=== PATIENT | female | born 1975 | race Caucasian/White ===

== ENCOUNTER 2022-10-24 03:55 | Emergency (ER) | payer OTHER ==
[2022-10-24] MEDS ORDERED: NA CHLORIDE 0.9% 1,000 ML ONE (04:27)
[2022-10-24 04:43] LABS: Absolute Lymphocytes (CBC) 2.6 K/uL (0.7-4.9); Hematocrit 31.9 % (36.0-45.0); Lymphocytes % 21.7 % (15.3-44.8); MCV 88.3 fL (80-100); MPV 7.2 fL (7.6-11.3); RBC Red Blood Cell Count 3.62 M/uL (3.86-4.86)
[2022-10-24 04:58] LABS: Albumin 2.8 g/dL (3.4-5.0); Bilirubin Total 0.4 mg/dL (0.2-1.0); Potassium 3.8 mmol/L (3.5-5.1); Protein, Total 6.7 g/dL (6.4-8.2)
[2022-10-24] MEDS ORDERED: BISACODYL E.C. 5 MG TAB PO ONE (06:00)
[2022-10-24] MEDS ORDERED: FLEET ENEMA ADULT PR ONE ×2 (06:00→07:00)
--- NOTE | 2022-10-24 06:47 | EDPHYS ---
Physician Documentation [facility] Name: Adela Hector Age: 46 yrs Sex: Female : 1975 Arrival Date: 10/24/2022 Time: 03:56 Bed 6 Private MD: ED Physician Wyatt Cárdenas HPI: 10/24 04:17 This 46 yrs old Female presents to ER via EMS with complaints of Right lower quadrant kdr pain, constipation. 04:17 Patient is status post right hip replacement several days ago. She states that prior to kdr the surgery she had been constipated and had been unable to empty her bowels thoroughly. Since the surgery several days ago she has not subsequently had a bowel movement is now feels very full. She also complains of right lower quadrant pain. She is nontoxic-appearing but does appear mild uncomfortable. She denies nausea or vomiting, fever or chills. She is otherwise in her usual state of health. Surgery was done at [facility]. Historical: - Allergies: 04:00 No Known Allergies; kl - Home Meds: 04:00 aspirin 81 mg Oral cap 2 caps once daily [Active]; rosuvastatin 20 mg oral cpSP 1 cap kl once daily [Active]; gabapentin 100 mg oral cap 2 caps 3 times per day [Active]; Tylenol-Codeine #4 300-60 mg Oral tab 1 tab every 6 hours [Active]; - PSHx: 04:00 hip replacement; kl - Immunization history:: Adult Immunizations not up to date. - Social history:: Smoking status: Patient denies any tobacco usage or history of. ROS: 04:39 Constitutional: Negative for fever, chills, and weight loss, Eyes: Negative for injury, kdr pain, redness, and discharge, ENT: Negative for injury, pain, and discharge, Neck: Negative for injury, pain, and swelling, Cardiovascular: Negative for chest pain, palpitations, and edema, Respiratory: Negative for shortness of breath, cough, wheezing, and pleuritic chest pain, Back: Negative for injury and pain, : Negative for injury, bleeding, discharge, and swelling, MS/Extremity: Negative for injury and deformity, Skin: Negative for injury, rash, and discoloration, Neuro: Negative for headache, weakness, numbness, tingling, and seizure activity. Psych: Negative for depression, anxiety, suicide ideation, homicidal ideation, and hallucinations, Allergy/Immunology: Negative for hives, rash, and allergies, Endocrine: Negative for neck swelling, polydipsia, polyuria, polyphagia, and marked weight changes, Hematologic/Lymphatic: Negative for swollen nodes, abnormal bleeding, and unusual bruising. 04:39 Abdomen/GI: Positive for abdominal pain, nausea, constipation, Negative for black/tarry stool, rectal pain, rectal bleeding, bowel incontinence. Exam: 04:39 Constitutional: This is a well developed, well nourished patient who is awake, alert, kdr and in no acute distress. Head/Face: Normocephalic, atraumatic. Eyes: Pupils equal round and reactive to light, extra-ocular motions intact. Lids and lashes normal. Conjunctiva and sclera are non-icteric and not injected. Cornea within normal limits. Periorbital areas with no swelling, redness, or edema. Neck: Trachea midline, no thyromegaly or masses palpated, and no cervical lymphadenopathy. Supple, full range of motion without nuchal rigidity, or vertebral point tenderness. No Meningismus. Chest/axilla: Normal chest wall appearance and motion. Nontender with no deformity. No lesions are appreciated. Cardiovascular: Regular rate and rhythm with a normal S1 and S2. No gallops, murmurs, or rubs. Normal PMI, no JVD. No pulse deficits. Respiratory: Lungs have equal breath sounds bilaterally, clear to auscultation and percussion. No rales, rhonchi or wheezes noted. No increased work of breathing, no retractions or nasal flaring. Back: No spinal tenderness. No costovertebral tenderness. Full range of motion. Skin: Warm, dry with normal turgor. Normal color with no rashes, no lesions, and no evidence of cellulitis. MS/ Extremity: Pulses equal, no cyanosis. Neurovascular intact. Full, normal range of motion. Neuro: Awake and alert, GCS 15, oriented to person, place, time, and situation. Cranial nerves II-XII grossly intact. Motor strength 5/5 in all extremities. Sensory grossly intact. Cerebellar exam normal. Normal gait. Psych: Awake, alert, with orientation to person, place and time. Behavior, mood, and affect are within normal limits. 04:39 Abdomen/GI: Inspection: obese Bowel sounds: active, Palpation: soft, mild abdominal tenderness, in the anterior aspect of right lateral abdomen and right lower quadrant. Vital Signs: 03:57 BP 92 / 64; Pulse 81; Resp 16; Pulse Ox 95% ; kl 04:03 Weight 98.88 kg; Height 5 ft. 6 in. (167.64 cm); Pain 10/10; kl 05:46 BP 113 / 67; Pulse 83; Resp 16; Pulse Ox 99% on R/A; jb4 04:03 Body Mass Index 35.19 (98.88 kg, 167.64 cm) kl MDM: 04:39 Data reviewed: vital signs, nurses notes, lab test result(s), radiologic studies. kdr Consideration of Admission/Observation Patient was admitted/placed on observation. I considered the following discharge prescriptions or medication management in the emergency department Medications were administered in the Emergency Department. See NOV. 06:46 Patient medically screened. kdr 10/24 04:15 Order name: CBC with Diff; Complete Time: 05:46 kdr 10/24 04:15 Order name: CMP; Complete Time: 05:46 kdr 10/24 04:15 Order name: Lipase; Complete Time: 05:46 kdr 10/24 04:15 Order name: CT Abd/Pelvis - IV Contrast Only kdr 10/24 04:15 Order name: IV Saline Lock; Complete Time: 05:07 kdr 10/24 04:15 Order name: Labs collected and sent; Complete Time: 05:07 kdr Administered Medications: 04:30 Drug: NS 0.9% 1000 ml Route: IV; Rate: 1 bolus; Site: left antecubital; jb4 06:12 Drug: Fleet Enema (sodium phosphate) 133 ml Route: SD; kl 06:40 Follow up: Response: No adverse reaction; Pain is decreased; Other kl 06:12 Drug: Dulcolax Delayed Release Tablet 15 mg Route: PO; kl Disposition Summary: 10/24/22 06:46 Discharge Ordered Location: Home kdr Problem: an ongoing problem kdr Symptoms: have improved kdr Condition: Stable kdr Diagnosis - Constipation kdr Followup: kdr - With: Private Physician - When: 2 - 3 days - Reason: If symptoms return, Further diagnostic work-up, Recheck today's complaints, Continuance of care, Re-evaluation by your physician Discharge Instructions: - Discharge Summary Sheet kdr - Constipation, Adult, [id number] kdr Forms: - Medication Reconciliation Form kdr - Thank You Letter kdr - Antibiotic Education kdr Prescriptions: - Dulcolax (bisacodyl) 5 mg Oral tablet,delayed release (DR/EC) - take 2 tablet by ORAL route once daily As needed; 10 tablet; Refills: 0, kdr Product Selection Permitted - Lactulose 10 gram/15 mL Oral Solution - take 30 milliliters by ORAL route once daily; 300 milliliter; Refills: 0, kdr Product Selection Permitted Signatures: Dispatcher [employer] Shanique Garner RN RN kl Rittger, Kevin, MD MD kdr Bryson, James, RN RN jb4 Corrections: (The following items were deleted from the chart) 04:03 04:00 Allergies: Aspirin; shyam howe
--- NOTE | 2022-10-24 06:47 | ER ---
Nurse's Notes [facility] Name: Adela Hector Age: 46 yrs Sex: Female : 1975 Arrival Date: 10/24/2022 Time: 03:56 Bed 6 Private MD: Diagnosis: Constipation Presentation: 10/24 03:57 Chief complaint: Patient states: right lower quadrant pain and constipation discharged kl yesterday from [facility] s/p hip replacement. Coronavirus screen: Vaccine status: Patient reports receiving the 2nd dose of the covid vaccine. Ebola Screen: Patient negative for fever greater than or equal to 101.5 degrees Fahrenheit, and additional compatible Ebola Virus Disease symptoms. Initial Sepsis Screen: Does the patient meet any 2 criteria? No. Patient's initial sepsis screen is negative. Does the patient have a suspected source of infection? No. Patient's initial sepsis screen is negative. 03:57 Method Of Arrival: EMS: [facility] 03:57 Acuity: LO 3 kl 07:10 Risk Assessment: Do you want to hurt yourself or someone else? Patient reports no kl desire to harm self or others. Triage Assessment: 03:59 General: Appears distressed, uncomfortable, Behavior is anxious. Pain: Complains of kl pain in right lower quadrant. Historical: - Allergies: 04:00 No Known Allergies; kl - Home Meds: 04:00 aspirin 81 mg Oral cap 2 caps once daily [Active]; rosuvastatin 20 mg oral cpSP 1 cap kl once daily [Active]; gabapentin 100 mg oral cap 2 caps 3 times per day [Active]; Tylenol-Codeine #4 300-60 mg Oral tab 1 tab every 6 hours [Active]; - PSHx: 04:00 hip replacement; kl - Immunization history:: Adult Immunizations not up to date. - Social history:: Smoking status: Patient denies any tobacco usage or history of. Screenin:39 [facility] ED Fall Risk Assessment (Adult) History of falling in the last 3 months, jb4 including since admission No falls in past 3 months (0 pts) Confusion or Disorientation No (0 pts) Mobility Assist Device Used Yes (1 pt) Score/Fall Risk Level 0 - 2 = Low Risk Oriented to surroundings, Maintained a safe environment. Abuse screen: Denies threats or abuse. Nutritional screening: No deficits noted. Tuberculosis screening: No symptoms or risk factors identified. Assessment: 04:29 General: Appears in no apparent distress. uncomfortable, Behavior is calm, cooperative, jb4 appropriate for age. Pain: Complains of pain in right lower quadrant Pain does not radiate. Pain currently is 8 out of 10 on a pain scale. Neuro: Level of Consciousness is awake, alert, obeys commands, Oriented to person, place, time, situation. Cardiovascular: Patient's skin is warm and dry. Respiratory: Airway is patent Respiratory effort is even, unlabored, Respiratory pattern is regular, symmetrical. GI: No signs and/or symptoms were reported involving the gastrointestinal system. : No signs and/or symptoms were reported regarding the genitourinary system. EENT: No signs and/or symptoms were reported regarding the EENT system. Derm: Skin is intact, Skin is pink, warm \T\ dry. Musculoskeletal: Circulation, motion, and sensation intact. Range of motion: intact in all extremities. 04:56 Reassessment: Patient appears in no apparent distress at this time. Patient and/or jb4 family updated on plan of care and expected duration. Pain level reassessed. Patient is alert, oriented x 3, equal unlabored respirations, skin warm/dry/pink. 05:46 Reassessment: Patient appears in no apparent distress at this time. Patient and/or jb4 family updated on plan of care and expected duration. Pain level reassessed. Patient is alert, oriented x 3, equal unlabored respirations, skin warm/dry/pink. 07:10 Reassessment: Patient appears in no apparent distress at this time. Patient and/or jb4 family updated on plan of care and expected duration. Pain level reassessed. Patient is alert, oriented x 3, equal unlabored respirations, skin warm/dry/pink. Vital Signs: 03:57 BP 92 / 64; Pulse 81; Resp 16; Pulse Ox 95% ; kl 04:03 Weight 98.88 kg; Height 5 ft. 6 in. (167.64 cm); Pain 10/10; kl 05:46 BP 113 / 67; Pulse 83; Resp 16; Pulse Ox 99% on R/A; jb4 04:03 Body Mass Index 35.19 (98.88 kg, 167.64 cm) ED Course: 03:56 Patient arrived in ED. kl 03:59 Triage completed. kl 04:05 Wyatt Cárdenas MD is Attending Physician. kdr 04:15 Osmani Dobson, RN is Primary Nurse. jb4 04:39 Patient has correct armband on for positive identification. Bed in low position. Call jb4 light in reach. Side rails up X 1. Client placed on continuous cardiac and pulse oximetry monitoring. NIBP monitoring applied. 04:39 No provider procedures requiring assistance completed. Initial lab(s) drawn, by ED jb4 staff, sent to lab. Inserted saline lock: 20 gauge in left antecubital area, using aseptic technique. Blood collected. 05:24 CT Abd/Pelvis - IV Contrast Only In Process Unspecified. EDTX 07:09 Patient transferred, IV remains in place. intact, bleeding controlled, No kl redness/swelling at site. Pressure dressing applied. Administered Medications: 04:30 Drug: NS 0.9% 1000 ml Route: IV; Rate: 1 bolus; Site: left antecubital; jb4 06:12 Drug: Fleet Enema (sodium phosphate) 133 ml Route: AL; kl 06:40 Follow up: Response: No adverse reaction; Pain is decreased; Other kl 06:12 Drug: Dulcolax Delayed Release Tablet 15 mg Route: PO; Medication: 07:10 VIS not applicable for this client. Outcome: 06:46 Discharge ordered by . kdr 07:10 Discharged to home ambulatory. kl 07:10 Condition: improved 07:10 Discharge instructions given to patient, Instructed on discharge instructions, follow up and referral plans. medication usage, Demonstrated understanding of instructions, follow-up care, medications, Prescriptions given X 1. 07:10 Patient left the ED. jb4 Signatures: Dispatcher [employer] EDTX Shanique Bass RN RN Wyatt Gil MD MD kdr Osmani Dobson, RN RN jb4 Corrections: (The following items were deleted from the chart) 04:03 04:00 Allergies: Aspirin; kl kl
[2022-10-24 07:19] VITALS: BP 113/67; O2SAT 99
--- NOTE | 2022-10-24 15:02 | RAD REPORT ---
EXAM DESCRIPTION: CT Abdomen and Pelvis With Intravenous Contrast CLINICAL HISTORY: The patient is 46 years old and is Female; RLQ pain TECHNIQUE: Axial computed tomography images of the abdomen and pelvis with intravenous contrast. S agittal and coronal reformatted images were created and reviewed. This CT exam was performed using one or more of the following dose reduction techniques: automated exposure control, adjustment of t he mA and/or kV according to patient size, and/or use of iterative reconstruction technique. COMPARISON: 12/27/2020 CT pelvis with contrast FINDINGS: LUNG BASES: Unremarkable. No mass. No consolidation. ABDOMEN: LIVER: Hepatic steatosis. GALLBLADDER AND BILE DUCTS: Unremarkable. No calcified stones. No ductal dilation. PANCREAS: Unremarkable. No mass. No ductal dilation. SPLEEN: Unremarkable. No splenomegaly. ADRENALS: Unremarkable. No mass. KIDNEYS AND URETERS: Unremarkable. No solid mass. No hydronephrosis. STOMACH AND BOWEL: Loop of nondilated sigmoid colon incidentally noted along the right lateral asp ect of the uterus with relative proximal and distal transition (axial images 62-67/99, sagittal image 73). While this may be of no clinical significance, this could reflect a nonobstructed right-sided m esencephalic sigmoid colon internal hernia in the appropriate clinical setting. No mucosal thickening. Remainder of the colon and small bowel appear unremarkable. No evidence of obstruction. PELVIS: APPENDIX: No findings to suggest acute appendicitis. BLADDER: Unremarkable. No mass. REPRODUCTIVE: Crenulated 2.1 x 1.1 cm right ovarian cyst. No dedicated imaging follow-up recommend ed for this particular finding. ABDOMEN and PELVIS: INTRAPERITONEAL SPACE: Trace free intrapelvic fluid, nonspecific but within physiologic limits. No f ree air. No distinct focal fluid collection to suggest abscess formation. BONES/JOINTS: Total right hip arthroplasty, which produces streak artifact, partially obscuring th e surrounding soft tissues. SOFT TISSUES: Moderate soft tissue stranding and scattered subcutaneous and deep tissue emphysema demonstrated about the right hip and proximal right femur, presumably reflecting expected recent post operative changes. Suspected small intramuscular hematomas involving the right piriformis and quadrat us femoris muscles. VASCULATURE: Unremarkable. No abdominal aortic aneurysm. LYMPH NODES: Unremarkable. No enlarged lymph nodes. IMPRESSION: 1. Expected recent postoperative changes related to total right hip arthroplasty, with s uspected small intramuscular hematomas involving the right piriformis and quadratus femoris muscles a nd mild to moderate inflammatory stranding and emphysema about the right hip and along the proximal r ight femur. No distinct focal fluid collection to suggest abscess. 2. Loop of nondilated sigmoid colon incidentally noted between the right ovary and adjacent uterus with relative proximal and distal transition points (axial images 62-67/99, sagittal image 73). This appears unchanged in position compared to 2020 exam. While this may be of no clinical significance, i n the appropriate clinical setting this could reflect a nonobstructed sigmoid colonic internal hernia through a right-sided mesosalpinx defect and could contribute to intermittent symptoms such as postp randial lower abdominal discomfort, recurrent constipation and/or loose stools, etc. Clinical correla tion and follow-up recommended. 3. Additional nonacute findings as above Dr. Norton discussed these findings with Dr. Cárdenas via telephone at approximately 07:20 hours EST on 10/24/2022. Electronically signed by: Ruddy Norton MD 10/24/2022 6:31 AM WEIGHTER Due to temporary technical issues with the PACS/Fluency reporting system, reports are being signed by the in house radiologists without review as a courtesy to insure prompt reporting. The interpreting radiologist is fully responsible for the content of the report.
== END 2022-10-24 07:10 | disposition home or self-care (01) ==
LOC: ER 03:55
DX: K59.00 Constipation, unspecified (principal); Z96.641 Presence of right artificial hip joint; Z79.82 Long term (current) use of aspirin
CPT/HCPCS: 85025; 36415; 83690; 80053; 74177; 99284; Q9967; J7030